=== PATIENT | female | born 1990 | race Caucasian/White ===

== ENCOUNTER 2025-06-26 08:46 | Observation (INO) | payer OTHER ==
[~2025-06-26] VITALS: Ht 162.6 cm; Wt 63.5 kg
--- NOTE | 2025-06-26 10:27 | DVH ---
BIOPHYSICAL PROFILE HISTORY: GDMA1 TECHNIQUE: Multiple real-time grayscale sonographic images through the gravid uterus of the fetus with duplex Doppler color flow. FINDINGS: BIOPHYSICAL PROFILE: breathing score: 2 movement score: 2 tone score: 2 Quantitative KALYN score: 2 Total score: 8 out of 8 Single live intrauterine . heart rate 142 beats per minute. Placenta is anteriorly/fundally positioned. KALYN 15.9 cm. Cephalic lie. IMPRESSION: Biophysical profile score: 8 out of 8
--- NOTE | 2025-06-26 11:53 | DVHDS2 ---
Physician Discharge Progress N Final Diagnosis: gdma1 33wks Operations or Procedures: Operations or Procedures nst reactive reviwed,sono Condition on Discharge: Good Disposition: Home Discharge Instructions: Diet: Consistent carbohydrate Activity: Light activity Medications: na Follow Up Care: Specialist: 3d Discharge Statement: "Patient was advised to return to the ER or call 911 if any headaches, dizziness, shortness of breath, chest pain, abdominal pain, bleeding, fevers, or worsening of medical condition. Patient was counseled about treatment plan, medications, possible side effects, patientverbalized understanding. All questions were answered to the best of my ability. This discharge took greater then 30 minutes in planning, reviewing documen tation, counseling the patient, and discussing with other team members." Visit Coding OBGYN Date of Service: Jun 26, 2025 Billing Provider: DOC KING DO CONTENT PRODUCER Common Visit Codes: [id number] OBS CARE (HIGH) CONTENT PRODUCER Procedure Codes: 41015-74- NON-STRESS TEST DOC KING DO Jun 26, 2025 11:53
== END 2025-06-26 10:53 | disposition home or self-care (01) ==
LOC: LDRP 08:46
PROVIDERS: ADMIT Obstetrics & Gynecology; ATTEND Obstetrics & Gynecology
DX: O24.419 Gestational diabetes mellitus in pregnancy, unspecified control (principal); Z3A.33 33 weeks gestation of pregnancy; Z98.890 Other specified postprocedural states
CPT/HCPCS: 76818; 81002; 82948; 82962; 94760; A4649; G0378; 59025; 76819

== ENCOUNTER 2025-07-03 03:27 | Observation (INO) | payer OTHER ==
--- NOTE | 2025-07-03 08:53 | DVH ---
BIOPHYSICAL PROFILE HISTORY: GDMA1 TECHNIQUE: Multiple transabdominal real-time grayscale sonographic images through the gravid uterus of the fetus with duplex Doppler color flow and M-mode spectral analysis FINDINGS: BIOPHYSICAL PROFILE: breathing score: 2/2 movement score: 2/2 tone score: 2/2 Quantitative KALYN score: 2/2 (KALYN: 17.4 Cm.) Total score: 8/8 The cervix closed Single live fetus in cephalic presentation. heart rate 130 beats per minute. Fundal grade 2 placenta without previa or abruption IMPRESSION: 1. Biophysical profile score: 8 of 8
[2025-07-03] MEDS ORDERED: PREN-96 PO (09:28)
[2025-07-03] MEDS ORDERED: ASPI-543 PO (09:28)
--- NOTE | 2025-07-03 10:02 | DVHDS2 ---
Physician Discharge Progress N Final Diagnosis: GDMA1 Operations or Procedures: Operations or Procedures NST/BPP/KALYN all reviewed, WNL PATIENT: LOIS LOZANO ACCT: [id number] UNIT: [id number] : 1990 LOC: [facility] ROOM / BED: TRIAGE2 / A AGE / SEX: 35 / F ADM STATUS: ADM IN SERVICE 2 ORDERING PHYSICIAN: TEZ PACE DO PROCEDURE(s): BPP - BIOPHYSICAL PROFILE REASON: GDMA1 ORDER NUMBER(s): [id number], ACCESSION NUMBER(s): [id number] BIOPHYSICAL PROFILE HISTORY: GDMA1 TECHNIQUE: Multiple transabdominal real-time grayscale sonographic images through the gravid uterus of the fetus with duplex Doppler color flow and M-mode spectral analysis FINDINGS: BIOPHYSICAL PROFILE: breathing score: 2/2 movement score: 2/2 tone score: 2/2 Quantitative KALYN score: 2/2 (KALYN: 17.4 Cm.) Total score: 8/8 The cervix closed Single live fetus in cephalic presentation. heart rate 130 beats per minute. Fundal grade 2 placenta without previa or abruption IMPRESSION: 1. Biophysical profile score: 8 of 8 ATED BY: ALON STUART MD DICTATED DATE/TIME: 07/03/25850 Condition on Discharge: Stable Disposition: Home Discharge Instructions: Diet: Consistent carbohydrate Activity: No Restrictions, As Tolerated Follow Up/Referral: [facility] Saturday[facility] at 8:00 am for NST/BPP Medications: NA Follow Up Care: Discharge Statement: "Patient was advised to return to the ER or call 911 if any headaches, dizziness, shortness of breath, chest pain, abdominal pain, bleeding, fevers, or worsening of medical condition. Patient was counseled about treatment plan, medications, possible side effects, patientverbalized understanding. All questions were answered to the best of my ability. This discharge took greater then 30 minutes in planning, reviewing documentation, counseling the patient, and discussing with other team members." Visit Coding OBGYN Date of Service: Jul 03, 2025 Billing Provider: TEZ PACE DO JAVA SYBASE DEVELOPER Common Visit Codes: 08469-QWR/OBS SAME DATE (HIGH) JAVA SYBASE DEVELOPER Procedure Codes: 68829-08- NON-STRESS TEST TEZ PACE DO Jul 03, 2025 10:02
== END 2025-07-03 09:21 | disposition home or self-care (01) ==
LOC: LDRP 07:59
PROVIDERS: ADMIT Obstetrics & Gynecology; ATTEND Obstetrics & Gynecology
DX: O24.419 Gestational diabetes mellitus in pregnancy, unspecified control (principal); Z3A.34 34 weeks gestation of pregnancy; Z98.890 Other specified postprocedural states
CPT/HCPCS: 76818; 81002; 82948; 82962; 94760; A4649; G0378; 59025; 76819

== ENCOUNTER 2025-07-10 02:22 | Observation (INO) | payer OTHER ==
[~2025-07-10 02:22] MED LIST: ASPI-543 PO; PREN-96 PO
--- NOTE | 2025-07-10 08:39 | DVH ---
CLINICAL HISTORY: Gestational diabetes. COMPARISON: US BIOPHYSICAL PROFILE on DOS: 07/03/25, US BIOPHYSICAL PROFILE on DOS: 06/26/25 TECHNIQUE: biophysical profile was performed. Transabdominal sonographic images of the fetus were obtained. FINDINGS: The fetus is in cephalic position. heart rate measures 129 BPM. Amniotic fluid index measures 16.3 cm. The placenta is fundal in position without visualized evidence of previa or abruption. BPP profile is an overall score of 8/8, with 2/2 points for breathing, with at least one episode of breathing over a 30 second duration during a 30 minute observation, 2/2 points for movements, with 3 or more discrete body or limb movements, 2/2 points for tone, with one or more episodes of extremity extension with return to flexion, or opening and closing of hand, and 2/2 points for amniotic fluid, with at least 1 pocket of amniotic fluid that measures 2 cm in 2 perpendicular planes. IMPRESSION: BPP score of 8/8.
--- NOTE | 2025-07-13 07:42 | DVHDS2 ---
Physician Discharge Progress N Final Diagnosis: gdm 35wks Operations or Procedures: Operations or Procedures nst reactive reviwed,sono Condition on Discharge: Good Disposition: Home Discharge Instructions: Diet: Consistent carbohydrate Activity: No Restrictions, As Tolerated Medications: na Follow Up Care: Specialist: 3d Discharge Statement: "Patient was advised to return to the ER or call 911 if any headaches, dizziness, shortness of breath, chest pain, abdominal pain, bleeding, fevers, or worsening of medical condition. Patient was counseled about treatment plan, medications, possible side effects, patientverbalized understanding. All questions were answered to the best of my ability. This discharge took greater then 30 minutes in planning, reviewing documentation, counseling the patient, and discussing with other team members." Visit Coding OBGYN Date of Service: Jul 10, 2025 Billing Provider: DOC KING DO MANPOWER DEVELOPMENT SPECIALIST MANAGER Common Visit Codes: [id number] OBS CARE (HIGH) MANPOWER DEVELOPMENT SPECIALIST MANAGER Procedure Codes: 34583-72- NON-STRESS TEST DOC KING DO Jul 13, 2025 07:42
== END 2025-07-10 08:55 | disposition home or self-care (01) ==
LOC: LDRP 07:56
PROVIDERS: ADMIT Obstetrics & Gynecology; ATTEND Obstetrics & Gynecology
DX: O24.419 Gestational diabetes mellitus in pregnancy, unspecified control (principal); Z3A.35 35 weeks gestation of pregnancy; Z98.890 Other specified postprocedural states
CPT/HCPCS: 76818; 81002; 82948; 82962; 94760; A4649; G0378; 59025; 76819

== ENCOUNTER 2025-07-17 02:03 | Observation (INO) | payer OTHER ==
--- NOTE | 2025-07-17 09:24 | DVH ---
BIOPHYSICAL PROFILE HISTORY: GDMA1 Comparison Study: US BIOPHYSICAL PROFILE on DOS: 07/10/25, US BIOPHYSICAL PROFILE on DOS: 07/03/25, US BIOPHYSICAL PROFILE on DOS: 06/26/25 TECHNIQUE: Multiple real-time grayscale sonographic images through the gravid uterus of the fetus with duplex Doppler color flow and M-mode spectral analysis FINDINGS: BIOPHYSICAL PROFILE: breathing score: 2 movement score: 2 tone score: 2 Quantitative KALYN score: 2 (KALYN: 14.6 Cm.) Total score: 8 The cervix is not evaluated Single live fetus in cephalic presentation. heart rate 136 beats per minute. Grade 2, posterior /fundal placenta without previa or abruption IMPRESSION: Biophysical profile score: 8
== END 2025-07-17 09:37 | disposition home or self-care (01) ==
LOC: LDRP 07:56
PROVIDERS: ADMIT Obstetrics & Gynecology; ATTEND Obstetrics & Gynecology
DX: O24.419 Gestational diabetes mellitus in pregnancy, unspecified control (principal); Z3A.36 36 weeks gestation of pregnancy; Z98.890 Other specified postprocedural states
CPT/HCPCS: 76818; 81002; 82948; 82962; 94760; A4649; G0378; 59025; 76819

== ENCOUNTER 2025-07-24 07:38 | Observation (INO) | payer OTHER ==
--- NOTE | 2025-07-24 09:06 | DVH ---
BIOPHYSICAL PROFILE HISTORY: GDMA1 Comparison Study: US BIOPHYSICAL PROFILE on DOS: 07/17/25, US BIOPHYSICAL PROFILE on DOS: 07/10/25, US BIOPHYSICAL PROFILE on DOS: 07/03/25, US BIOPHYSICAL PROFILE on DOS: 06/26/25 TECHNIQUE: Multiple real-time grayscale sonographic images through the gravid uterus of the fetus with duplex doppler color flow and M-mode spectral analysis FINDINGS: BIOPHYSICAL PROFILE: breathing score: 2 movement score: 2 tone score: 2 Quantitative KALYN score: 2 (KALYN: 15.1 cm.) Total score: 8 Single live fetus in cephalic presentation. heart rate 144 beats per minute. Grade 2 placenta without previa or abruption IMPRESSION: 1. Biophysical profile score: 8
--- NOTE | 2025-07-26 15:18 | DVHDS2 ---
Physician Discharge Progress N Final Diagnosis: GDM 37WKS Operations or Procedures: Operations or Procedures NST REACTIVE REVIWED,SONO Condition on Discharge: Good Disposition: Home Discharge Instructions: Diet: Regular, Consistent carbohydrate Activity: No Restrictions, As Tolerated Medications: NA Follow Up Care: Specialist: 4D Discharge Statement: "Patient was advised to return to the ER or call 911 if any headaches, dizziness, shortness of breath, chest pain, abdominal pain, bleeding, fevers, or worsening of medical condition. Patient was counseled about treatment plan, medications, possible side effects, patientverbalized understanding. All questions were answered to the best of my ability. This discharge took greater then 30 minutes in planning, reviewing documentation, counseling the patient, and discussing with other team members." Visit Coding OBGYN Date of Service: Jul 24, 2025 Billing Provider: DOC KING DO CUSTOMER SERVICE SALES ASSOCIATE Common Visit Codes: [id number] OBS CARE (HIGH) CUSTOMER SERVICE SALES ASSOCIATE Procedure Codes: 16094-56- NON-STRESS TEST DOC KING DO Jul 26, 2025 15:18
== END 2025-07-24 10:05 | disposition home or self-care (01) ==
LOC: LDRP 08:00
PROVIDERS: ADMIT Obstetrics & Gynecology; ATTEND Obstetrics & Gynecology
DX: O24.419 Gestational diabetes mellitus in pregnancy, unspecified control (principal); Z3A.37 37 weeks gestation of pregnancy; Z98.890 Other specified postprocedural states
CPT/HCPCS: 76818; 81002; 82948; 82962; A4649; G0378; 59025; 76819